=== PATIENT | female | born 1960 | race Caucasian/White ===

== ENCOUNTER 2018-06-01 11:15 | Emergency (ER) | payer BC, OTHER ==
[2018-06-01 11:46] VITALS: BP 150/91; PULSE 69; TEMP 98.3; BMI 28.3
[2018-06-01] MEDS ORDERED: MAG HYDROX/AL HYDROX/SIMETH 30 ML UNIT-DOSE CUP PO ONE (12:12)
[2018-06-01] MEDS ORDERED: SODIUM CHLORIDE 1,000 ML IV STA (12:12)
--- NOTE | 2018-06-01 12:12 | PDOC ---
History of Present Illness - General Chief Complaint: Pain Stated Complaint: PAIN, LT SIDE Time Seen by Provider: 06/01/18 12:06 - History of Present Illness Initial Comments: 06/01/18 12:39 The patient is a 58 year old female with a history of thyroid CA who presents for evaluation of LUQ abdominal pain. The patient reports a 2 day history of LUQ burning abdominal pain prompting her presentation to the ED for further evaluation. She denies any exacerbating or relieving factors and denies similar symptoms in the past. She otherwise denies fevers, chills, SOB, chest pain, nausea, vomiting, or changes with urination or bowel movements. Past History - Past Medical History Allergies/Adverse Reactions: Allergies Allergy/AdvReac Type Severity Reaction Status Date / Time No Known Allergies Allergy Verified 06/01/18 11:44 Home Medications: Ambulatory Orders Famotidine [Pepcid -] 20 mg PO DAILY #20 tablet 06/01/18 Levothyroxine [Synthroid -] 225 mcg PO DAILY 06/01/18 COPD: No Other medical history: THYROID CANCER 2009 - Suicide/Smoking/Psychosocial Hx Smoking History: Never smoked Review of Systems - Review of Systems Comments:: 06/01/18 12:41 Constitutional: No fevers, chills, fatigue, malaise HEENT: No Rhinorrhea, nasal congestion, visual changes Cardiovascular: No chest pain, syncope, palpitations, lightheadedness Respiratory: No Cough, SOB, Hemoptysis, Gastrointestinal: Abdominal pain. No Nausea, Vomiting, Constipation, Diarrhea, Melena Genitourinary: No Dysuria, Frequency, Urgency, Hesitancy, Hematuria, Flank pain Musculoskeletal: No Myalgia, arthralgia Skin: No rashes, itching, bruising, pallor Neurologic: No Headache, Dizziness, Numbness, Weakness, or Tingling Psychiatric: No Hallucinations. No SI or HI *Physical Exam - Vital Signs Last Vital Signs Temp Pulse Resp BP Pulse Ox 98.3 F 69 16 150/91 99 06/01/18 11:44 06/01/18 11:44 06/01/18 11:44 06/01/18 11:44 06/01/18 11:44 - Physical Exam Comments: 06/01/18 12:41 General Appearance: Nourished. No Apparent Distress HEENT: No Pharyngeal Erythema, Tonsillar Exudate, Tonsillar Erythema Neck: No Cervical Lymphadenopathy Respiratory/Chest: Lungs Clear, Normal Breath Sounds. No Crackles, Rales, Rhonchi, Wheezing Cardiovascular: Regular Rhythm, Regular Rate. No Murmur, Gallops, Rubs Gastrointestinal/Abdominal: Normal Bowel Sounds, Soft. LUQ and epigastric tenderness to palpation. No RUQ tenderness. Negative Jaramillo's sign. No Guarding, Rebound, Musculoskeletal: No CVA Tenderness Extremity: Normal Capillary Refill Integumentary: Normal Color, Dry, Warm Neurologic: Fully Oriented, Alert, Normal Mood/Affect, Normal Response, Heart Score/ECG Review #1 ECG reviewed & interpreted by me at: 12:41 General ECG Interpretation: Sinus Rhythm, Normal Rate, Normal Intervals, No acute ischemic changes ED Treatment Course - LABORATORY CBC & Chemistry Diagram: 06/01/18 12:52 06/01/18 12:52 Medical Decision Making - Medical Decision Making 06/01/18 12:42 The patient is a 58 year old female with a history of thyroid CA who presents for evaluation of LUQ abdominal pain. Differential includes but is not limited to: ACS, Gastritis, Pancreatitis, Infectious, Metabolic Derangement. Given the patient's history and physical exam, we will obtain a cbc, cmp, lipase, troponin , ekg, chest plain film to evaluate further. We will treat with iv fluids, pepcid, maalox and continue to monitor and reassess while here in the ED. 06/01/18 14:02 CBC, cmp, lipase, troponin are unremarkable. Chest plain film is unremarkable. The patient reports improvement in her symptoms. We are comfortable discharging the patient home with GI follow up. We discussed the results, plan , and return precautions with the patient who voiced understanding and is agreeable with the plan. *DC/Admit/Observation/Transfer Diagnosis at time of Disposition: Abdominal pain Qualifiers: Abdominal location: unspecified location Qualified Code(s): R10.9 - Unspecified abdominal pain - Discharge Dispostion Disposition: HOME Condition at time of disposition: Stable - Prescriptions Prescriptions: Famotidine [Pepcid -] 20 mg PO DAILY #20 tablet - Referrals Referrals: Janet Steiner MD [Primary Care Provider] - Vini Deng DO [Staff Physician] - - Patient Instructions Printed Discharge Instructions: DI for Abdominal Pain-Adult Additional Instructions: Please return to the ER if you experience concerning or worsening symptoms including worsening difficulty breathing, weakness, or chest pain, abdominal pain, vomiting. Please take pepcid daily along with maalox to help with your symptoms and avoid fatty foods Your lab results and x-rays were normal here in the ER. Please call to schedule a follow up appointment with our GI specialist within 2-3 days to discuss your ER visit and further management of your symptoms. - Post Discharge Activity
[2018-06-01] MEDS ORDERED: FAMOTIDINE 20 MG/50 ML IVPB 20 MG/50 ML MG IVPB ONE ×2 (12:30→12:40)
[2018-06-01] MEDS ORDERED: MAG HYDROX/AL HYDROX/SIMETH 30 ML UNIT-DOSE CUP ONE (12:40)
[2018-06-01 13:06] LABS: BASO % 1.1 % (0-2.0); EOS % 3.3 % (0-4.5); HEMATOCRIT 35.7 % (32.4-45.2); HEMOGLOBIN 11.8 GM/dL (10.7-15.3); LYMPH % 28.2 % (8-40); MCH 31.6 pg (25.7-33.7); MCHC 32.9 g/dl (32.0-36.0); MEAN CELL VOLUME 96.1 fl (80-96); MEAN PLT VOLUME 8.8 fl (7.5-11.1); MONO % 9.9 % (3.8-10.2); NEUT % 57.5 % (42.8-82.8); PLATELET COUNT 201 K/MM3 (134-434); RBC 3.72 M/mm3 (3.60-5.2); RDW 12.1 % (11.6-15.6); WHITE BLOOD COUNT 3.8 K/mm3 (4.0-10.0)
[2018-06-01 13:34] LABS: ALK PHOS 86 U/L (45-117); ANION GAP 6 MMOL/L (8-16); BILIRUBIN,TOTAL 0.4 mg/dL (0.2-1); BLOOD UREA NITROGEN 16 mg/dL (7-18); CALCIUM 9.1 mg/dL (8.5-10.1); CHLORIDE 105 mmol/L (98-107); CO2 29 mmol/L (21-32); CREATININE 0.6 mg/dL (0.55-1.3); GLUCOSE,RANDOM 88 mg/dL (74-106); LIPASE 188 U/L (73-393); POTASSIUM 4.1 mmol/L (3.5-5.1); SGOT/AST 15 U/L (15-37); SGPT/ALT 21 U/L (13-61); SODIUM 140 mmol/L (136-145); TOT PROT 6.7 g/dl (6.4-8.2)
--- NOTE | 2018-06-01 13:58 | PDOC ---
Attending Attestation - Resident Resident Name: Cory Romeroel - ED Attending Attestation I have performed the following: I have examined & evaluated the patient, The case was reviewed & discussed with the resident, I agree w/resident's findings & plan - HPI HPI: 06/01/18 13:59 58 year old female with a history of thyroid CA who presents for evaluation of LUQ and epigastric abdominal pain x 2 days, a/w burning sensation; She denies any exacerbating or relieving factors and denies similar symptoms in the past. She otherwise denies fevers, chills, SOB, chest pain, nausea, vomiting, or changes with urination or bowel movements. - Physicial Exam PE: 06/01/18 13:58 NAD, well appearing, PERRL, EOMI, MMM, nl conjunctiva, anicteric; neck supple. lungs clear, RRR, abdomen soft+epigastric TTP, no david's. DANIELS x4, no focal neuro deficits. No peripheral edema. normal color for ethnicity, [facility]. - Medical Decision Making 06/01/18 13:59 58 year old female with a history of thyroid CA who presents for evaluation of LUQ and epigastric abdominal pain x 2 days, a/w burning sensation; She denies any exacerbating or relieving factors and denies similar symptoms in the past. She otherwise denies fevers, chills, SOB, chest pain, nausea, vomiting, or changes with urination or bowel movements. Vital signs reviewed, wnl. laboratory results and imaging reviewed, basic labs and lytes wnl, notable for normal LFTs and lipase, reassuring. CXR_clear Cardiac panel_neg trop, unlikely ACS/cardiac EKG normal sinus rhythm, no interval abnormalities, narrow QRS, ST and T wave segments and morphology normal. Nonspecific T wave abnormalities in III only ED course: no acute events, improved with GI cocktail, pepcid and fluids. facundo PO w/o difficulty avoid triggers, fatty foods and spicy foods. - more likely gerd vs gastritis vs PUD. GI follow up as outpatient appropriate. Dispo: Pt to be discharged in stable condition. Patient and family made aware of impression and plan, return precautions discussed (including but not limited to worsening pain or symptoms), fevers, or signs of infection, chest pain, respiratory distress, inability to tolerate oral intake, dehydration, syncope, or neurologic changes). Follow up with PMD and/or GI specialist as recommended, follow up information provided, take medications as instructed for duration of time. continue with supportive care, avoid triggers and precipitants. All questions answered to patient's satisfaction and expressed understanding and comfort with this. 06/01/18 14:01 Heart Score/ECG Review - ECG Impressions Normal ECG: Yes Comment:: 06/01/18 14:01 EKG normal sinus rhythm, no interval abnormalities, narrow QRS, ST and T wave segments and morphology normal. Nonspecific T wave abnormalities in III only
--- NOTE | 2018-06-01 15:30 | EKG ---
Test Reason : Blood Pressure : / mmHG Vent. Rate : 064 BPM Atrial Rate : 064 BPM P-R Int : 178 ms QRS Dur : 084 ms QT Int : 404 ms P-R-T Axes : 011 016 027 degrees QTc Int : 416 ms NORMAL SINUS RHYTHM NORMAL ECG NO PREVIOUS ECGS AVAILABLE Confirmed by Aurelio Jean MD ([id number]) on 06/01/2018 3:29:47 PM Referred By: Confirmed By:Aurelio Jean MD
== END 2018-06-01 14:20 | disposition home or self-care (01) ==
LOC: JER 11:15
PROC: 3E0337Z Introduction of Electrolytic and Water Balance Substance into Peripheral Vein, Percutaneous Approach (ICD-10-PCS; principal; 2018-06-01)
PROC: 3E033GC Introduction of Other Therapeutic Substance into Peripheral Vein, Percutaneous Approach (ICD-10-PCS; 2018-06-01)
DX: R10.9 Unspecified abdominal pain (principal); R10.12 Left upper quadrant pain
CPT/HCPCS: 36415; 71045-TC-FY; 80053; 82550; 83690; 84484; 85025; 93005; 93010; 99283-25; J7030

== ENCOUNTER 2020-09-06 20:28 | Emergency (ER) | payer BC, OTHER ==
[2020-09-06 20:51] VITALS: BP 141/87; PULSE 88; TEMP 98.1; BMI 26.6
[2020-09-06] MEDS ORDERED: SODIUM CHLORIDE 0.9% 500 ML INFUS.BAG IV ONE (21:49)
[2020-09-06] MEDS ORDERED: METOCLOPRAMIDE HCL INJECTION 10 MG/2 ML VIAL IVPUSH ONE (21:49)
[2020-09-06] MEDS ORDERED: KETOROLAC TROMETHAMINE 15 MG/ML VIAL IVPUSH ONE (21:49)
[2020-09-06] MEDS ORDERED: PROCHLORPERAZINE INJECTION 10 MG/2 ML VIAL IVPB ONE (21:50)
[2020-09-06 23:00] LABS: BASO % 1.1 % (0-2.0); EOS % 1.4 % (0-4.5); HEMATOCRIT 37.3 % (32.4-45.2); HEMOGLOBIN 12.9 GM/dL (10.7-15.3); LYMPH % 16.7 % (8-40); MCH 33.8 pg (25.7-33.7); MCHC 34.6 g/dl (32.0-36.0); MEAN CELL VOLUME 97.8 fl (80-96); MEAN PLT VOLUME 9.1 fl (7.5-11.1); MONO % 13.5 % (3.8-10.2); NEUT % 67.3 % (42.8-82.8); PLATELET COUNT 171 K/MM3 (134-434); RBC 3.81 M/mm3 (3.60-5.2); RDW 12.6 % (11.6-15.6); WHITE BLOOD COUNT 3.5 K/mm3 (4.0-10.0)
[2020-09-06] MEDS ORDERED: METOCLOPRAMIDE HCL INJECTION 10 MG/2 ML VIAL ONE (23:00)
[2020-09-06] MEDS ORDERED: PROCHLORPERAZINE INJECTION 10 MG/2 ML VIAL ONE (23:00)
[2020-09-06 23:55] LABS: CHLORIDE 107 mmol/L (98-107); POTASSIUM 3.8 mmol/L (3.5-5.1); SODIUM 141 mmol/L (136-145)
[2020-09-06 23:57] LABS: ALBUMIN 4.3 g/dl (3.4-5.0); ANION GAP 8 MMOL/L (8-16); BLOOD UREA NITROGEN 17.2 mg/dL (7-18); CALCIUM 8.8 mg/dL (8.5-10.1); CO2 27 mmol/L (21-32)
[2020-09-06 23:58] LABS: GLUCOSE,RANDOM 85 mg/dL (74-106); MAGNESIUM 1.9 mg/dL (1.8-2.4)
[2020-09-07] LABS: SGOT/AST 18 U/L (15-37); SGPT/ALT 24 U/L (13-61)
[2020-09-07 00:01] LABS: CREATININE 0.9 mg/dL (0.55-1.3)
[2020-09-07 00:02] LABS: BILIRUBIN,TOTAL 0.7 mg/dL (0.2-1)
[2020-09-07 00:03] LABS: ALK PHOS 98 U/L (45-117)
[2020-09-07] MEDS ORDERED: KETOROLAC TROMETHAMINE 15 MG/ML VIAL IVPUSH ONE (00:59)
[2020-09-07] MEDS ORDERED: KETOROLAC TROMETHAMINE 15 MG/ML VIAL ONE (01:37)
== END 2020-09-07 02:34 | disposition home or self-care (01) ==
LOC: JER 20:28
PROC: 3E0333Z Introduction of Anti-inflammatory into Peripheral Vein, Percutaneous Approach (ICD-10-PCS; principal; 2020-09-06)
PROC: 3E033GC Introduction of Other Therapeutic Substance into Peripheral Vein, Percutaneous Approach (ICD-10-PCS; 2020-09-06)
PROC: 3E033GC Introduction of Other Therapeutic Substance into Peripheral Vein, Percutaneous Approach (ICD-10-PCS; 2020-09-06)
DX: R07.9 Chest pain, unspecified (principal); R51.9 Headache, unspecified
CPT/HCPCS: 36415; 70450-TC; 71046-TC-FY; 80053; 82550; 82553; 83735; 84484; 85025; 93005; 93010; 96374; 96375; 99285-25